=== PATIENT | female | born 1955 | race Caucasian/White ===

== ENCOUNTER 2018-03-21 12:51 | Day surgery (SDC) | payer OTHER ==
[~2018-03-21] VITALS: Ht 180.3 cm; Wt 120.1 kg
[~2018-03-21 12:51] MED LIST: ALPR.5 PO; ANTIBIOTIC; Aspir 8181 MG PO; CRUTCH4 USE; ESCI20; ESCI20 PO; HYDACE5 PO; IBUP800 PO; Lexapro20 MG PO; NAPR500 PO; OXYCODONE
[2018-03-21] MEDS ORDERED: LISI5 PO (14:27)
== END 2018-03-21 16:15 | disposition home or self-care (01) ==
LOC: ORSCSDS 12:51
PROVIDERS: Ophthalmology
PROC: 080PXZZ Alteration of Left Upper Eyelid, External Approach (ICD-10-PCS; principal; 2018-03-21 14:30)
PROC: 080NXZZ Alteration of Right Upper Eyelid, External Approach (ICD-10-PCS; principal; 2018-03-21 14:30)
DX: H02.831 Dermatochalasis of right upper eyelid (principal); H02.834 Dermatochalasis of left upper eyelid; E03.9 Hypothyroidism, unspecified; F32.9 Major depressive disorder, single episode, unspecified; Z79.899 Other long term (current) drug therapy; E66.01 Morbid (severe) obesity due to excess calories; Z68.36 Body mass index [BMI] 36.0-36.9, adult
CPT/HCPCS: J0171; J2250; J7040

== ENCOUNTER 2021-05-03 06:46 | Day surgery (SDC) | payer BC, OTHER ==
[~2021-05-03] VITALS: Ht 177.8 cm; Wt 109.2 kg
[~2021-05-03 06:46] MED LIST changes: +ELIQUIS5 M2 PO; +ESCI10 PO; +Estrace Vagin42.5 GM VAG; +FURO20 PO; +LISI5 PO; +METO50ER PO; +Prinivil10 MG PO
--- NOTE | 2021-05-03 13:42 | NUR ---
05/03/21 1342 Clarisa Ashley LATE ENTRY: PT HAD RESTLESS LEG THROUGHOUT PROCEDURE. AT 0840 ORDERED FOR PT TO WAKE UP IN ORDER TO FOLLOW COMMANDS AND HOLD STILL. PT WOKE UP FINE DURING PROCEDURE AND WAS ABLE TO FOLLOW INSTRUCTIONS SUCH HOLDING STILL WELL. PT WAS GIVEN SMALL DOSES OF PROPOFOL AT THE REMAINDER OF THE PROCEDURE FOR COMFORT, BUT PT WAS STILL ABLE TO FOLLOW COMMANDS PER DR. ZAMORA. VS STEADY. PT HAS AFIB AND HEART RATE STAYED WNL. PT WAS CLOSELY MONITORED THROUGHOUT THE PROCEDURE. PROCEDURE ENDED AT 09
== END 2021-05-03 09:40 | disposition home or self-care (01) ==
LOC: ORSCSDS 06:46
PROVIDERS: Student in an Organized Health Care Education/Training Program
PROC: 0DBN8ZX Excision of Sigmoid Colon, Via Natural or Artificial Opening Endoscopic, Diagnostic (ICD-10-PCS; principal; 2021-05-03 08:00)
PROC: 0DBK8ZX Excision of Ascending Colon, Via Natural or Artificial Opening Endoscopic, Diagnostic (ICD-10-PCS; principal; 2021-05-03 08:00)
PROC: 0DBL8ZX Excision of Transverse Colon, Via Natural or Artificial Opening Endoscopic, Diagnostic (ICD-10-PCS; principal; 2021-05-03 08:00)
DX: Z12.11 Encounter for screening for malignant neoplasm of colon (principal); D12.2 Benign neoplasm of ascending colon; D12.3 Benign neoplasm of transverse colon; D12.5 Benign neoplasm of sigmoid colon; Z86.010 Personal history of colon polyps; I48.91 Unspecified atrial fibrillation; I10 Essential (primary) hypertension; I50.9 Heart failure, unspecified; F41.9 Anxiety disorder, unspecified; Z79.01 Long term (current) use of anticoagulants; Z79.899 Other long term (current) drug therapy
CPT/HCPCS: 88305; J2704; J7120

== ENCOUNTER 2021-12-29 08:45 | Day surgery (SDC) | payer BC, OTHER ==
[~2021-12-29] VITALS: Ht 177.8 cm; Wt 113.0 kg
[2021-12-29] MEDS ORDERED: CYMBALTA60 M1 PO (09:08)
--- NOTE | 2021-12-29 09:19 | NUR ---
PT HERE FOR COLONOSCOPY. QUESTIONS ANSWERED. PREOP COURSE WITHOUT DIFFICULTY.
--- NOTE | 2021-12-29 10:42 | NUR ---
12/29/21 1042 Earnest Cruz PATIENT DETERMINED TO BE ASA APPROPRIATE FOR PROPOFOL SEDATION PRIOR TO START OF PROCEDURE BY DR. MARISCAL 3-LEAD EKG REVIEWED WITH PHYSICIAN PRIOR TO START OF PROCEDURE. Patient to ENDO 1. History, Chart, Medications and Allergies reviewed before start of procedure. MONITOR INTACT WITH CONTINUOUS PULSE OXIMETRY AND INTERMITTENT BP. O2 VIA N/C INTACT THROUGHOUT SEDATION/PROCEDURE.
--- NOTE | 2021-12-29 11:50 | NUR ---
Patient up to Ambulate independently. Gait steady. Patient States Post-Procedure ride home has been arranged. Discharge instructions reviewed with patient. Patient verbalizes understanding. Copy given to patient to take home. Discharged via wheelchair to private car for ride home.
== END 2021-12-29 11:55 | disposition home or self-care (01) ==
LOC: ORSCMMR 08:45
PROVIDERS: Student in an Organized Health Care Education/Training Program
PROC: 0DBL8ZX Excision of Transverse Colon, Via Natural or Artificial Opening Endoscopic, Diagnostic (ICD-10-PCS; principal; 2021-12-29 10:00)
DX: Z12.11 Encounter for screening for malignant neoplasm of colon (principal); K63.5 Polyp of colon; K57.30 Diverticulosis of large intestine without perforation or abscess without bleeding; K64.4 Residual hemorrhoidal skin tags; Z86.010 Personal history of colon polyps; I48.91 Unspecified atrial fibrillation; I10 Essential (primary) hypertension; I50.9 Heart failure, unspecified; Z79.01 Long term (current) use of anticoagulants; Z79.899 Other long term (current) drug therapy
CPT/HCPCS: 88305; J2250; J2405; J2704; J7120

== ENCOUNTER → 2022-07-06 | Outpatient (CLI) | payer BC, OTHER ==
[~2022-07-06] MED LIST changes: +CYMBALTA60 M1 PO
== END ==
LOC: LAB SHORT 11:04 → LAB 11:04
DX: N39.0 Urinary tract infection, site not specified (principal)
CPT/HCPCS: 87077; 87086; 87186

== ENCOUNTER 2023-04-10 05:53 | Day surgery (SDC) | payer BC, MEDICARE ==
[2023-04-10] VITALS (15 sets, daily range): BP systolic 91–136; BP diastolic 55–93
[~2023-04-10] VITALS: Ht 177.8 cm; Wt 109.3 kg
[~2023-04-10 05:53] MED LIST changes: +MAGNESIUM PO; +MULVITA PO
--- NOTE | 2023-04-10 07:05 | NUR ---
Ambulatory in Day SurgeryPre-Op teaching done. Pt verbalizes understanding. History, Chart, Medications and Allergies reviewed before start of procedure.Pre-Op teaching done. Pt verbalizes understanding. Patient confirms NPO status and agrees with scheduled surgery.
--- NOTE | 2023-04-10 10:20 | NUR ---
ARRIVAL PATIENT TO ROOM 214 VIA BED. VSS ON 2L 02 AT THIS TIME, LUNGS CLEAR. AQUACEL, ROGER WRAP, AND POLAR PACK TO RIGHT KNEE. RAJI'S & SCD'S IN PLACE. PATIENT HAS FULL SENSATION TO BLE, ABLE TO WIGGLES TOES/FEET. DENIES PAIN AT THIS TIME. ORIENTED TO ROOM & UNIT. PROVIDED FIRE SAFETY EDUCATION, NO NOTICIBLE SOURCES OF IGNITION, POATIENT & FAMILY AT BEDSIDE DENY ANY SOURCE OF IGNITION ON THERE PERSON AT THIS TIME, PROVIDED FORE SAFETY HANDOUT. CALL LIGHT IN REACH.
--- NOTE | 2023-04-10 10:50 | NUR ---
PATIENT UP TO BSC REPORTED NEED TO VOID, BUT APEPARED VERY SLEEPY. UNABLE TO VOID ON BEDPAN. ASSISTED TO BSC W/ 2P, GB, AND FWW. PATIENT TOLERATED VERY WELL. WAS ABLE TO VOID ON BSC.
--- NOTE | 2023-04-10 17:55 | NUR ---
SHIFT SUMMARY POD 0 R SHAY. AQUACEL TO R HIP, C/D/I. POLAR PACK IN PLACE. SCD'S & RAJI'S IN PLACE. PATIENT UP TO CHAIR T/O AFTERNOON, WORKED WITH PT AND DID WELL, SBA W/ FWW & GB. TOLERATING REGULAR DIET, DENIES N/V. PATIENT DENYING PAIN, MEDICATED WITH TYLENOL AND TORADOL SCHEDULED. VOIDING W/O DIFFICULTY. CALLS APPROPRIATELY, IN REACH.
[2023-04-11 00:16] VITALS: BP 81/52
[2023-04-11 04:26] VITALS: BP 101/62
[2023-04-11 04:55] LABS: BASOPHILS ABSOLUTE AUTO 0.01 K/mm3 (0.00-0.23); BASOPHILS PERCENT AUTO 0 % (0-2); EOSINOPHILS ABSOLUTE AUTO 0.01 K/mm3 (0.00-0.68); EOSINOPHILS PERCENT AUTO 0 % (0-6); Hematocrit 31.7 % (33.0-51.0); Hemoglobin 10.7 g/dL (11.5-16.0); IMMATURE GRAN ABSOLUTE AUTO 0.04 K/mm3 (0.00-0.10); IMMATURE GRAN PERCENT AUTO 1 % (0-1); LYMPHOCYTES ABSOLUTE AUTO 0.97 K/mm3 (0.84-5.20); LYMPHOCYTES PERCENT AUTO 12 % (21-46); MONOCYTES ABSOLUTE AUTO 0.96 K/mm3 (0.16-1.47); MONOCYTES PERCENT AUTO 11 % (4-13); Mean Corpuscular HGB 30.5 pg (26.0-34.0); Mean Corpuscular HGB Conc 33.8 g/dL (31.5-36.5); Mean Corpuscular Volume 90 fL (80-100); NEUTROPHILS ABSOLUTE AUTO 6.47 K/mm3 (1.96-9.15); NEUTROPHILS PERCENT AUTO 77 % (41-73); Platelet Count 145 K/mm3 (150-400); RDW Coefficient Variation 13.7 % (11.7-14.2); RDW Standard Deviation 44.9 fL (35.1-46.3); Red Blood Cell Count 3.51 M/mm3 (3.80-5.20); White Blood Cell Count 8.46 K/mm3 (4.00-11.30)
[2023-04-11 05:43] LABS: Bun/Creatinine Ratio 28.4 (12.0-20.0); Calcium, Blood 8.1 mg/dL (8.5-10.1); Creatinine, Blood 0.91 mg/dL (0.40-1.00); Potassium, Blood 4.4 mmol/L (3.5-5.5)
--- NOTE | 2023-04-11 06:14 | NUR ---
SHIFT SUMMARY POD 1 R SHAY, AQUACEL C/D/I TO ANTERIOR HIP W/ MINIMAL BRUISING TO AREA. A&OX4, VSS W/ DECREASE IN BP TO 81/52, FLUIDS PROVIDED ORDERED W/ GOOD RESULTS TO 101/62. PT DECLINES PAIN MEDS W/ ONLY REPORTS OF BACK PAIN. SBA W/ FFW/ GB TO BATHROOM. PT DENIES N/V, SOB, N/T. NO ACUTE CHANGES THIS SHIFT. CALL LIGHT W/IN REACH, PT PLANS FOR DISCHARGE TODAY. IGNITION ASSESSMENT COMPLETED W/ PT UNDERSTANDING OF FACILITY POLICIES.
[2023-04-11 07:07] VITALS: BP 99/62
[2023-04-11] MEDS ORDERED: Percocet 5-3251 EACH PO (07:40)
--- NOTE | 2023-04-11 11:17 | NUR ---
DISCHARGE SUMMARY PT A&OX4, VSS/RA, FLETCHER PO, VOIDING, AMB SBA FWW/GB, PAIN MANAGED, FIRE SAFETY EDUCATION, IV DC'D. DC INS PROVIDED. PT REP UNDERSTANDING THOSE INSTRUCTIONS INCLUDING BP/MEDS/NARCS ASSESSMENT, PAIN MANAGEMENT, DRESSING CHANGES, SHORT FREQUENT AMB/PHYSICAL THERAPY OUTPT. LEFT FLOOR VIA WC WITH OVERLOCKER TO GO HOME WITH FAMILY WITH ALL PERSONAL POSSESSIONS, POLAR CHECO, DRESSINGS.
== END 2023-04-11 10:33 | disposition home or self-care (01) ==
LOC: ORSCMMR 05:53 → ORD 07:30 → SURS 10:24 → ORSCMMR 04-11 10:33
PROVIDERS: Orthopaedic Surgery
PROC: 0SR90JZ Replacement of Right Hip Joint with Synthetic Substitute, Open Approach (ICD-10-PCS; principal; 2023-04-10 07:30)
DX: M16.11 Unilateral primary osteoarthritis, right hip (principal); I10 Essential (primary) hypertension; I48.91 Unspecified atrial fibrillation; Z79.01 Long term (current) use of anticoagulants; Z79.899 Other long term (current) drug therapy; E03.9 Hypothyroidism, unspecified; E66.9 Obesity, unspecified; Z68.34 Body mass index [BMI] 34.0-34.9, adult; Z85.3 Personal history of malignant neoplasm of breast
CPT/HCPCS: 36415; 72170; 80048; 85025; 94760; 97110; 97116; 97161; 97530; A9270; C1776; J0171; J0690; J0735; J1100; J1885; J2250; J2371; J2405; J2704; J2795; J3010; J7120

== ENCOUNTER 2025-05-04 22:34 | Emergency (ER) | payer BC ==
[~2025-05-04] VITALS: Ht 177.8 cm; Wt 93.0 kg
[~2025-05-04 22:34] MED LIST changes: +Percocet 5-3251 EACH PO
[2025-05-04 23:17] LABS: BASOPHILS ABSOLUTE AUTO 0.02 K/mm3 (0.00-0.23); BASOPHILS PERCENT AUTO 0 % (0-2); EOSINOPHILS ABSOLUTE AUTO 0.12 K/mm3 (0.00-0.68); EOSINOPHILS PERCENT AUTO 3 % (0-6); Hematocrit 42.0 % (33.0-51.0); Hemoglobin 13.9 g/dL (11.5-16.0); IMMATURE GRAN ABSOLUTE AUTO 0.01 K/mm3 (0.00-0.10); IMMATURE GRAN PERCENT AUTO 0 % (0-1); LYMPHOCYTES ABSOLUTE AUTO 1.10 K/mm3 (0.84-5.20); LYMPHOCYTES PERCENT AUTO 24 % (21-46); MONOCYTES ABSOLUTE AUTO 0.45 K/mm3 (0.16-1.47); MONOCYTES PERCENT AUTO 10 % (4-13); Mean Corpuscular HGB Conc 33.1 g/dL (31.5-36.5); Mean Corpuscular Volume 93 fL (80-100); NEUTROPHILS ABSOLUTE AUTO 2.98 K/mm3 (1.96-9.15); NEUTROPHILS PERCENT AUTO 64 % (41-73); NRBC ABSOLUTE 0.00 K/mm3 (0.00-0.02); NRBC Auto 0.0 /100 WBC (0.0-0.2); Platelet Count 143 K/mm3 (150-400); RDW Coefficient Variation 12.9 % (11.7-14.2); RDW Standard Deviation 44.4 fL (35.1-46.3)
[2025-05-04 23:36] LABS: Alanine Aminotransfer (ALT/SGP 13.0 U/L (12-78); Albumin, Blood 3.5 g/dL (3.4-5.0); Albumin/Globulin Ratio 0.9 (0.8-1.8); Anion Gap 10.0 mmol/L (3-11); Aspartate Aminotrans (AST/SGOT 22.0 U/L (12-37); Bilirubin, Total 1.1 mg/dL (0.1-1.0); Blood Urea Nitrogen 17.0 mg/dL (8-24); CO2, Blood 28.0 mmol/L (21-32); Calcium, Blood 8.7 mg/dL (8.5-10.1); Chloride, Blood 104.0 mmol/L (98-108); Creatinine, Blood 0.84 mg/dL (0.40-1.00); Globulin, Blood 3.7 g/dL (2.2-4.0); Glucose, Blood 97.0 mg/dL (70-99); Potassium, Blood 3.7 mmol/L (3.5-5.5); Sodium, Blood 138.0 mmol/L (136-145); Total Protein, Blood 7.2 g/dL (6.4-8.2)
[2025-05-05] MEDS ORDERED: Ondansetron HCl 2 MG / ML 2ML Vial IV ONE (00:25)
[2025-05-05] MEDS ORDERED: NS 1,000 ML IV SCH (00:25)
[2025-05-05] MEDS ORDERED: Lidocaine 2% Viscous Soln 15 ML UDC PO ONE (00:25)
[2025-05-05] MEDS ORDERED: ALMACONE SUSPE355 ML PO (02:14)
[2025-05-05] MEDS ORDERED: FAMO20 PO (02:14)
[2025-05-05 02:36] VITALS: BP 128/78
== END 2025-05-05 02:36 | disposition home or self-care (01) ==
LOC: ER 22:34
PROVIDERS: Student in an Organized Health Care Education/Training Program
DX: R10.13 Epigastric pain (principal); R11.2 Nausea with vomiting, unspecified; Z59.89 Other problems related to housing and economic circumstances; Z88.5 Allergy status to narcotic agent; Z79.01 Long term (current) use of anticoagulants; Z79.899 Other long term (current) drug therapy
CPT/HCPCS: 74022; 80053; 83690; 84484; 85025; 86850; 86900; 86901; 93005; 93010; 96374; 96375; 99284-25; A9270; J2405; J7030